=== PATIENT | male | born 1945 | race Caucasian/White ===

== ENCOUNTER → 2016-10-06 | Outpatient (CLI) | payer MEDICARE, OTHER | LOC: MW.LAB 10:18 | PROVIDERS: ATTEND Radiology Radiation Oncology | DX: C79.51 Secondary malignant neoplasm of bone (principal); C61 Malignant neoplasm of prostate | CPT/HCPCS: 36415; 84153; 85025 ==

== ENCOUNTER → 2016-10-27 | Outpatient (CLI) | payer MEDICARE, OTHER | LOC: MW.CHFP 08:00 | PROVIDERS: ATTEND Emergency Medicine | DX: R13.10 Dysphagia, unspecified (principal) | CPT/HCPCS: G0463 ==

== ENCOUNTER 2016-11-21 06:58 | Day surgery (SDC) | payer MEDICARE, OTHER ==
[~2016-11-21 06:58] MED LIST: Lactated Ringers 1,000 ML IV SCH
--- NOTE | 2016-11-21 07:59 | PCM.PREANE ---
Preanesthetic Assessment - Anesthesia/Transfusion/Family Hx Anesthesia History: Prior Anesthesia Without Reaction Other Type of Anesthesia Reaction Comment: REports difficult intubation "will bring card I carry regarding my airway" Transfusion History: Prior Transfusion Without Reaction Intubation History: History of Difficulty Intubation - Review of Systems General: No Symptoms Pulmonary: No Symptoms Cardiovascular: No Symptoms Gastrointestinal: Difficulty swallowing Neurological: No Symptoms Other: Reports: None - Physical Assessment O2 Sat by Pulse Oximetry: 98 Respiratory Rate: 18 Vital Signs: Last Vital Signs Temp 36.8 C 11/21/16 07:15 Pulse 74 11/21/16 07:15 Resp 18 11/21/16 07:15 BP 135/77 11/21/16 07:15 Pulse Ox 98 11/21/16 07:15 Height: 1.75 m Weight: 96.162 kg ASA Class: 3 Mental Status: Alert & Oriented x3 Airway Class: Mallampati = 2 Dentition: Reports: [place](s) (multiple lower), Bridge (upper left) Thyro-Mental Finger Breadths: 3 Mouth Opening Finger Breadths: 2 ROM/Head Extension: Limited/Partial Lungs: Clear to auscultation, Normal respiratory effort Cardiovascular: Regular Rate, Regular Rhythm, No Murmurs - Allergies Allergies/Adverse Reactions: Allergies Allergy/AdvReac Type Severity Reaction Status Date / Time No Known Allergies Allergy Verified 11/17/16 12:47 - Blood Blood Available: No - Anesthesia Plan Pre-Op Medication Ordered: Antacids - Acknowledgements Anesthesia Type Planned: MAC Pt an Appropriate Candidate for the Planned Anesthesia: Yes Alternatives and Risks of Anesthesia Discussed w Pt/Guardian: Yes Pt/Guardian Understands and Agrees with Anesthesia Plan: Yes PreAnesthesia Questionnaire HEENT History: Reports: Glaucoma Other HEENT History: wears glasses, states has bad dentition Cardiovascular History: Reports: None Other Respiratory History: "spots in lungs" Gastrointestinal History: Reports: Other (see below) Other Gastrointestinal History: dysphagia Genitourinary History: Reports: Renal calculus Musculoskeletal History: Reports: Back pain, chronic, Fracture, Gout Other Musculoskeletal History: hx of fx arm, left leg, 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- takes pain pills every 8 hours for painfull legs Neurological History: Reports: Other (see below) Other Neuro History: restless leg syndrome Psychiatric History: Reports: None Endocrine/Metabolic History: Reports: Obesity/BMI 30+ Hematologic History: Reports: Blood transfusion(s) Immunologic History: Reports: None Oncologic (Cancer) History: Reports: Prostate Other Oncologic History: Metastisis to Bone, Stage III Dermatologic History: Reports: None - Infectious Disease History Infectious Disease History: Reports: None - Past Surgical History Head Surgeries/Procedures: Reports: None HEENT Surgical History: Reports: None Cardiovascular Surgical History: Reports: None Respiratory Surgical History: Reports: None GI Surgical History: Reports: Appendectomy Female Surgical History: Reports: Other (see below) (vasectomy) Male Surgical History: Reports: Kidney stone extraction, Prostatectomy, Vasectomy Endocrine Surgical History: Reports: None Neurological Surgical History: Reports: None Musculoskeletal Surgical History: Reports: Other (see below) ( left leg treatment) Oncologic Surgical History: Reports: Other (see below) Other Oncologic Surgeries/Procedures: retropubic prostatectomy, has also had radiation for bone mets Dermatological Surgical History: Reports: None - SUBSTANCE USE Smoking Status *Q: Never Smoker Second Hand Smoke Exposure: No Days Per Week of Alcohol Use: 0 Recreational Drug Use History: No - HOME MEDS Home Medications: Home Meds Bimatoprost [LUMIGAN 0.01% Ophth Soln] 2.5 ml EYEBOTH BEDTIME 11/21/13 [History] Multivitamin [Multiple Vitamins] 1 each PO DAILY 11/21/13 [History] Aspirin 1 tab PO DAILY 01/06/15 [History] Calcium Carbonate/Vitamin D3 [Calcium 500 + Vit D 400] 5 tab PO BID 01/06/15 [ History] Dorzolamide HCl/Timolol Maleat [Cosopt Eye Drops] 1 drop EYEBOTH BID 01/06/15 [ History] Hydrocodone/Acetaminophen [Hydrocodon-Acetaminophn 10-325] 1 tab PO TID PRN 09/21 [History] Abiraterone Acetate [Zytiga] 1,000 mg PO QPM 11/17/16 [History] Leuprolide [Lupron Depot 4-Month] 30 mg IM ASDIRECTED 11/17/16 [History] Pyridoxine HCl [Vitamin B-6] 100 mg PO BID 11/17/16 [History] predniSONE [Prednisone] 5 mg PO BID 11/17/16 [History] - CURRENT (IN HOUSE) MEDS Current Meds: Current Medications Lactated Ringer's (Ringers, Lactated) 1,000 mls @ 125 mls/hr IV ASDIRECTED [facility] Last Admin: 11/21/16 07:17 Dose: 125 mls/hr
[2016-11-21] MEDS ORDERED: Propofol 200 MG/20 ML SDV ONE ×2 (08:34→08:35)
[2016-11-21] MEDS ORDERED: Lidocaine 2% 5 ML SDV ONE (08:35)
[2016-11-21] MEDS ORDERED: fentaNYL 100 MCG/2 ML SDV ONE (08:35)
[2016-11-21] MEDS ORDERED: Benzocaine 20% Topical Spray UD MUCMEM ONE (09:23)
[2016-11-21] MEDS ORDERED: Lidocaine 4% Top Soln 50 ML Bottle ONE (09:27)
[2016-11-21] MEDS ORDERED: Lactated Ringers 1,000 ML IV SCH (10:00)
--- NOTE | 2016-11-21 10:00 | PCM.OPNOTE ---
- General Post-Op/Procedure Note Date of Surgery/Procedure: 11/21/16 Operative Procedure(s): Esophagogastroduodenoscopy with gastric biopsies Findings: Presbyesophagus Pre Op Diagnosis: Solid food dysphagia with weight loss Post-Op Diagnosis: Tertiary esophageal contractions only. No longitudinal stripping waves. No evidence of neoplasm. Mild gastritis. Anesthesia Technique: MAC (ASA III) Primary Surgeon: Ravindra Tyler Condition: Good Free Text/Narrative:: Dictation [id number]
--- NOTE | 2016-11-21 10:17 | PCM.POSTAN ---
POST ANESTHESIA ASSESSMENT - MENTAL STATUS Mental Status: alert, oriented - RESPIRATORY Respiratory Status: respiratory rate WNL, airway patent, O2 saturation stable - CARDIOVASCULAR CV Status: pulse rate WNL, blood pressure stable - GASTROINTESTINAL GI Status: no symptoms - POST OP HYDRATION Hydration Status: adequate & stable - OBSERVATIONS Free Text/Narrative:: no anesthesia problems
[2016-11-21 10:25] VITALS: BP 148/85
--- NOTE | 2016-11-21 14:01 | OR ---
SURGEON: Ravindra Tyler M.D. DATE OF PROCEDURE: 11/21/2016 OPERATION PERFORMED: Esophagogastroduodenoscopy with biopsy. ANESTHESIA: MAC. ASA CLASSIFICATION: III. PREOPERATIVE DIAGNOSES: Persistent solid food dysphagia with recent weight loss. POSTOPERATIVE DIAGNOSES: 1. Presbyesophagus. 2. Mild gastritis. DESCRIPTION OF PROCEDURE: The patient was taken to the endoscopy room and positioned on the endoscopy table in the supine position. Time-out was called for appropriate identification of patient and procedure. Monitored anesthesia care was provided. The bite block was placed between the patient's teeth. The gastroscope was then inserted through the bite block and advanced without difficulty through the esophagus and stomach into the duodenum, where examination was carried out in a retrograde fashion. The duodenum shows no acute duodenitis or ulcerations. The antrum does show a very mild gastritis. Antral biopsies were obtained to look for the presence of Helicobacter pylori. The gastroscope was then retroflexed to visualize the proximal stomach. No ulcerations were noted proximally. There was no evidence of proximal gastritis. The gastroscope was then straightened and slowly withdrawn, carefully visualizing both greater and lesser curvatures. No ulcerations or tumors were noted. The GE junction was well defined and shows no acute inflammatory changes. No ulcerations were noted in the esophagus. The esophagus itself demonstrates tertiary contractions. I did not see any evidence of longitudinal peristaltic contraction. The scope was then slowly withdrawn visualizing the vocal cords. The vocal cords do move symmetrically. No lesions were identified. The gastroscope was then removed with the patient having tolerated the procedure well. NORIS / PINO /[id number]
== END 2016-11-21 11:00 | disposition home or self-care (01) ==
LOC: MW.SDS 06:58
PROVIDERS: ATTEND Surgery
PROC: 0DB68ZX Excision of Stomach, Via Natural or Artificial Opening Endoscopic, Diagnostic (ICD-10-PCS; principal; 2016-11-21)
DX: K22.8 Other specified diseases of esophagus (principal); K29.70 Gastritis, unspecified, without bleeding; G25.81 Restless legs syndrome; M10.9 Gout, unspecified; Z85.46 Personal history of malignant neoplasm of prostate; Z92.3 Personal history of irradiation; Z87.442 Personal history of urinary calculi; Z88.4 Allergy status to anesthetic agent; Z79.82 Long term (current) use of aspirin; Z79.52 Long term (current) use of systemic steroids; Z79.899 Other long term (current) drug therapy; Z98.52 Vasectomy status; Z90.49 Acquired absence of other specified parts of digestive tract; Z90.79 Acquired absence of other genital organ(s); Z98.890 Other specified postprocedural states
CPT/HCPCS: 43239; 88305; 88312; A9270; J3010; J7120; 00740; J2704

== ENCOUNTER → 2016-11-24 | Outpatient (CLI) | payer MEDICARE, OTHER | LOC: MW.CHGS 08:00 | PROVIDERS: ATTEND Surgery | DX: K29.50 Unspecified chronic gastritis without bleeding (principal); R13.10 Dysphagia, unspecified | CPT/HCPCS: G0463 ==